=== PATIENT | female | born 1975 | race Caucasian/White ===

== ENCOUNTER 2016-09-04 12:53 | Emergency (ER) | payer MEDICAID, OTHER ==
[~2016-09-04] VITALS: Ht 152.4 cm; Wt 68.0 kg
[~2016-09-04 12:53] MED LIST: DICL50TA11 PO; HYDR-3498 PO
[2016-09-04 13:02] VITALS: Ht 152.4 cm; Wt 68.0 kg
[2016-09-04] MEDS ORDERED: ONDANSETRON 4 MG INJ IV STA (14:35)
[2016-09-04] MEDS ORDERED: KETOROLAC 30 MG INJ IV STA (14:35)
[2016-09-04 15:23] LABS: BASOPHILS % 0.2 % (0.0-2.0); EOSINOPHILS % 0.3 % (0.0-7.0); HEMATOCRIT 36.5 % (37.0-47.0); HEMOGLOBIN 12.4 g/dl (12.0-16.0); LYMPHOCYTES # 1.6 10^3/ul (0.8-2.9); LYMPHOCYTES % 11.9 % (15.0-51.0); MEAN CORPUSCULAR HEMOGLOBIN 27.1 pg (29.0-33.0); MEAN CORPUSCULAR HGB CONC 34.1 g/dl (32.0-37.0); MEAN CORPUSCULAR VOLUME 79.7 fl (82.0-101.0); MEAN PLATELET VOLUME 8.1 fl (7.4-10.4); MONOCYTE # 0.6 10^3/ul (0.3-0.9); MONOCYTES % 4.4 % (0.0-11.0); NEUTROPHIL # 11.3 10^3/ul (1.6-7.5); NEUTROPHILS % 83.2 % (39.0-77.0); PLATELET COUNT 389 10^3/UL (140-440); RED BLOOD COUNT 4.58 10^6/ul (4.20-5.40); UNCORRECTED WBC 13.5 10^3/ul (4.8-10.8); WHITE BLOOD COUNT 13.5 10^3/ul (4.8-10.8)
[2016-09-04 15:24] LABS: ALBUMIN 4.1 g/dl (3.3-4.9)
[2016-09-04 15:24] LABS: ADD UMIC YES; URINE BILIRUBIN (Dip) 1+ (NEGATIVE); URINE BLOOD (Dip) 3+ (NEGATIVE); URINE COLOR YELLOW (YELLOW); URINE GLUCOSE (Dip) NEGATIVE (NEGATIVE); URINE KETONES (Dip) TRACE (NEGATIVE); URINE LEUKOCYTE ESTERASE (Dip) NEGATIVE (NEGATIVE); URINE NITRITE (Dip) NEGATIVE (NEGATIVE); URINE TOTAL PROTEIN (Dip) 2+ (NEGATIVE); URINE UROBILINOGEN (Dip) 0.2 E.U./dL (0.1-1.0)
[2016-09-04 15:25] LABS: POTASSIUM 3.8 mmol/L (3.5-5.1)
[2016-09-04 15:27] LABS: BILIRUBIN,INDIRECT 0.2 mg/dl (0-1.1); BILIRUBIN,TOTAL 0.2 mg/dl (0.2-1.3); CREATININE 0.51 mg/dl (0.44-1.00)
[2016-09-04 15:28] LABS: ALBUMIN/GLOBULIN RATIO 1.2; CALCIUM 9.1 mg/dl (8.4-10.2); TOTAL PROTEIN 7.5 g/dl (6.1-8.1)
[2016-09-04 15:32] LABS: CONDITION 1; LH ANALYZER COMMENTS 1
--- NOTE | 2016-09-04 16:05 | RADRPT ---
PROCEDURE: US Pelvis CLINICAL INDICATION: Pelvic pain. TECHNIQUE: Sonographic evaluation of the pelvis was performed utilizing both transabdominal and tr ansvaginal technique. Curved array transabdominal transducer technique as well as a high frequency endovaginal probe was utilized. Images were reviewed on the high-resolution PACS workstation. COMPARISON: No prior studies are available for comparison. FINDINGS: The uterus is normal in size, echogenicity, and morphology, measuring 9.6 x 4.7 x 5.2 cm. The uterus is anteverted in normal position. The endometrium measures 4.1 mm in thickness. The normal trilaminar stripe of the endometrium is preserved. Multiple Nabothian cysts are seen in the cervix, measuring up to 1.5 cm. The ovaries are not visualized. There are no adnexal masses. There is no significant free fluid in the pelvis. IMPRESSION: 1. Nonvisualization of the ovaries. 2. Otherwise unremarkable pelvic ultrasound. RPTAT: QQ .Scotty oCx MD, MD Date Time Electronically viewed and signed by .Scotty Cox MD, on 09/04/2016 16:05 .M/
[2016-09-04 16:07] LABS: ICTOTEST NEGATIVE (NEGATIVE)
[2016-09-04 16:10] LABS: BACTERIA,URINE FEW; MUCUS,URINE MODERATE; SQUAMOUS EPITHELIAL CELL,UR MODERATE
[2016-09-04] MEDS ORDERED: HYDR-902 PO (16:27)
[2016-09-04] MEDS ORDERED: ONDA4TAB14 PO (16:27)
--- NOTE | 2016-09-04 16:31 | ERD ---
ER Documentation Chief Complaint Date/Time DATE: 09/04/16 TIME: 16:28 Chief Complaint pt bib self with c/o abd pain starting yesterday HPI Patient is a 41-year-old female who presents with lower abdominal pain that she has had for 2 days. Pain is intermittent and when it comes on she rates it as a 7 out of 10. She had her appendix removed in 2015. She took Tylenol at home with help with the pain. He denies any dysuria or hematuria but does admit to increased urinary frequency. Denies any vaginal bleeding. Admits to nausea but no vomiting. No diarrhea. Denies fever. Last menstrual period was August 21. ROS All systems reviewed and are negative except as per history of present illness. Medications Home Meds Active Scripts Hydrocodone/Acetaminophen ([place] 10-325 Tablet) 1 Each Tablet, 1 EACH PO Q8, # 20 TAB Prov:JESSICA MOREAU PA-C 09/04/16 Ondansetron (Ondansetron Odt) 4 Mg Tab.rapdis, 4 MG PO Q6H Y for NAUSEA AND/OR VOMITING, #20 TAB Prov:JESSICA MOREAU PA-C 09/04/16 Hydrocodone Bit-Acetaminophen* ([place]*) 5-325 Mg Tab, 1 TAB PO Q6 Y for PAIN, # 7 TAB Prov:JANEE YANCEY DO 03/11/16 Diclofenac Sodium* (Diclofenac Sodium*) 50 Mg Tablet.dr, 50 MG PO TID, #12 TAB Prov:JANEE YANCEY DO 03/11/16 Allergies Allergies: Coded Allergies: No Known Allergy (Unverified , 03/11/16) PMhx/Soc History of Surgery: Yes (appy november 2015) Anesthesia Reaction: No Hx Neurological Disorder: No Hx Respiratory Disorders: No Hx Cardiac Disorders: No Hx Psychiatric Problems: No Hx Miscellaneous Medical Probl: No Hx Alcohol Use: No Hx Substance Use: No Hx Tobacco Use: No FmHx Family History: No diabetes Physical Exam Vitals Vital Signs Date Time Temp Pulse Resp B/P Pulse Ox O2 Delivery O2 Flow Rate FiO2 09/04/16 13:02 97.3 64 16 113/64 100 Physical Exam General: well developed, well nourished, alert, nontoxic, no distress Head: normocephalic, atraumatic Eyes: PERRL, normal conjunctiva Neck: Supple, nontender, no lymphadenopathy, no midline tenderness Respiratory: Clear to auscaultation bilaterally, speaks in full sentences, no use of accesory muscles or labored breathing, no rales, ronchi, or wheezing Cardiovascular: RRR, No murmurs GI: soft, non tender, non distended, negative murphys sign, negative mcburneys point tenderness, no cva tenderness bilaterally, no rebound or guarding Back: no midline tenderness, no step offs or bony abnormalities, sensation to light touch in tact Result Diagram: 09/04/16 1445 09/04/16 1445 Results 24 hrs Laboratory Tests Test 09/04/16 14:45 09/04/16 14:50 Alanine Aminotransferase (ALT/SGPT) 28IU/L Albumin 4.1g/dl Albumin/Globulin Ratio 1.20 Alkaline Phosphatase 116IU/L Anion Gap 18 Aspartate Amino Transf (AST/SGOT) 29IU/L Basophils # 0.010^3/ul Basophils % 0.2% Blood Morphology Comment Blood Urea Nitrogen 11mg/dl Calcium Level 9.1mg/dl Carbon Dioxide Level 27mmol/L Chloride Level 98mmol/L Creatinine 0.51mg/dl Direct Bilirubin 0.00mg/dl Eosinophils # 0.010^3/ul Eosinophils % 0.3% Globulin 3.40g/dl Glucose Level 101mg/dl Hematocrit 36.5% Hemoglobin 12.4g/dl Indirect Bilirubin 0.2mg/dl Lipase 31U/L Lymphocytes # 1.610^3/ul Lymphocytes % 11.9% Mean Corpuscular Hemoglobin 27.1pg Mean Corpuscular Hemoglobin Concent 34.1g/dl Mean Corpuscular Volume 79.7fl Mean Platelet Volume 8.1fl Monocytes # 0.610^3/ul Monocytes % 4.4% Neutrophils # 11.310^3/ul Neutrophils % 83.2% Nucleated Red Blood Cells # 0.010^3/ul Nucleated Red Blood Cells % 0.0/100WBC Platelet Count 06233^3/UL Potassium Level 3.8mmol/L Red Blood Count 4.5810^6/ul Red Cell Distribution Width 14.0% Sodium Level 139mmol/L Total Bilirubin 0.2mg/dl Total Protein 7.5g/dl White Blood Count 13.510^3/ul Urine Amorphous Urates MANY Urine Bacteria FEW Urine Bilirubin 1+ Urine Clarity CLOUDY Urine Color YELLOW Urine Glucose NEGATIVE% Urine Hemoglobin 3+ Urine Ictotest NEGATIVE Urine Ketones TRACE Urine Leukocyte Esterase NEGATIVE Urine Microscopic RBC 10-25/HPF Urine Microscopic WBC 0-2/HPF Urine Mucus MODERATE Urine Nitrite NEGATIVE Urine Specific [place] >=1.030 Urine Squamous Epithelial Cells MODERATE Urine Total Protein 2+ Urine Urobilinogen 0.2 E.U./dL Urine pH 6.0 Current Medications Medications (Trade) Dose Ordered Sig/Connie Route PRN Reason Start Time Stop Time Status Last Admin Dose Admin Ondansetron HCl (Zofran Inj) 4 mg ONCE STAT IV 09/04/16 14:35 09/04/16 14:37 DC 09/04/16 14:56 Ketorolac Tromethamine (Toradol) 30 mg ONCE STAT IV 09/04/16 14:35 09/04/16 14:37 DC 09/04/16 14:56 Procedures/MDM 41-year-old female presents with lower bilateral abdominal pain. All vital signs are within normal limits. She is well-appearing in no distress. GI examination is benign and nontender. She has no tenderness over her gallbladder she has already had her appendix removed. I doubt diverticulitis. Doubt acute abdomen or any other emergent cause of her symptoms. Her workup here was unremarkable including labs, and pelvic ultrasound. She is discharged with pain medications. Recommended this patient follow up with her primary care doctor within 48 hours or return to the emergency room for any worsening of symptoms. However this time I do believe there is suitable for outpatient management. I answered all their questions and they agreed with the plan and were discharged home. Departure Diagnosis: Primary Impression: Abdominal pain Condition: Stable Patient Instructions: Abdominal Pain Additional Instructions: Call your primary care doctor TOMORROW for an appointment during the next 1-2 days.See the doctor sooner or return here if your condition worsens before your appointment time. JESSICA MOREAU PA-C Sep 04, 2016 16:31
== END 2016-09-04 17:23 | disposition home or self-care (01) ==
LOC: FTE 12:53
DX: R10.30 Lower abdominal pain, unspecified (principal); R11.0 Nausea; R10.2 Pelvic and perineal pain
CPT/HCPCS: 36415; 76830; 76856; 80053; 81001; 83690; 85025; 96374; 96375; J1885; J2405; Z7502; 81003

== ENCOUNTER 2017-11-11 07:41 | Emergency (ER) | END 2017-11-11 11:25 | disposition home or self-care (01) ==

== ENCOUNTER 2018-01-03 06:03 | Day surgery (SDC) | END 2018-01-03 10:00 | disposition home or self-care (01) ==